=== PATIENT | female | born 1955 | race Caucasian/White ===

== ENCOUNTER 2022-01-05 17:08 | Emergency (ER) | payer BC, MEDICARE ==
[2022-01-05 17:23] VITALS: O2SAT 98
[2022-01-05] MEDS ORDERED: BACTRIM DS TABLET PO STA (18:19)
[2022-01-05] MEDS ORDERED: BACTRIM DS TABLET PO ONE (18:22)
--- NOTE | 2022-01-05 18:27 | ERPHSYRPT ---
- History of Present Illness Time Seen by Provider: 01/05/22 17:30 Source: patient Exam Limitations: no limitations Patient Subjective Stated Complaint: pt here for left hand and wrist swelling, reddness and warmth since tuesday Triage Nursing Assessment: pt walked in, resp easy, skin w/d/p. face mask in place, has swelling reddness and warmth to left wrsit . has strong radial pulse Physician History: Patient is a 66-year-old female presents with a 2-day history of swelling and redness to her left hand. Patient states that symptoms are progressive. No pain at rest. Some discomfort with palpation. Patient declined pain medication. No trauma. No fever. Patient is not diabetic. Symptoms are mild to moderate in intensity. No associated numbness tingling or weakness. Patient denies history of same. She voices no other complaints or concerns at this time. Occurred: days ago (2 days ago) Method of Injury: unknown Quality: other (Pain only with palpation.) Severity of Pain-Max: moderate Severity of Pain-Current: mild Extremities Pain Location: hand: right (Swelling and redness at dorsum of left hand.) Modifying Factors: Improves With: movement Associated Symptoms: other Allergies/Adverse Reactions: No Known Drug Allergies Allergy (Unverified 01/05/22 17:24) Hx Influenza Vaccination/Date Given: Yes Hx Pneumococcal Vaccination/Date Given: Yes Immunizations Up to Date: Yes Travel Risk - International Travel Have you traveled outside of the country in past 3 weeks: No - Coronavirus Screening Are you exhibiting any of the following symptoms?: No Close contact with a COVID-19 positive Pt in past 14-21 Days: No - Vaccine Status Have you recieved a Covid-19 vaccination: Yes Case Finisher: Moderna - Vaccination Dates Date of 2cond Vaccination (if applicable): 2020 - Review of Systems Constitutional: No Symptoms, No Fever, No Chills Eyes: No Symptoms Ears, Nose, & Throat: No Symptoms Respiratory: No Symptoms, No Cough, No Dyspnea Cardiac: No Symptoms, No Chest Pain, No Edema, No Syncope Abdominal/Gastrointestinal: No Symptoms, No Abdominal Pain, No Nausea, No Vomiting, No Diarrhea Genitourinary Symptoms: No Symptoms, No Dysuria Musculoskeletal: No Symptoms, No Back Pain, No Neck Pain Skin: No Symptoms, No Rash Neurological: No Symptoms, No Dizziness, No Focal Weakness, No Sensory Changes Psychological: No Symptoms Endocrine: No Symptoms Hematologic/Lymphatic: No Symptoms Immunological/Allergic: No Symptoms All Other Systems: Reviewed and Negative - Past Medical History Pertinent Past Medical History: No - Past Surgical History Past Surgical History: Yes Gastrointestinal: Cholecystectomy - Social History Smoking Status: Former smoker Exposure to second hand smoke: No Drug Use: none Patient Lives Alone: No - Female History Hx Last Menstrual Period: post Hx Now: No - Nursing Vital Signs Nursing Vital Signs: Initial Vital Signs Temperature 97.8 F 01/05/22 17:23 Pulse Rate 87 01/05/22 17:23 Respiratory Rate 18 01/05/22 17:23 Blood Pressure 189/77 01/05/22 17:23 O2 Sat by Pulse Oximetry 98 01/05/22 17:23 Pain Scale Pain Intensity 6 - Physical Exam General Appearance: no apparent distress, alert Eyes, Ears, Nose, Throat Exam: normal ENT inspection, TMs normal, pharynx normal, moist mucous membranes Neck Exam: normal inspection, non-tender, supple, full range of motion Cardiovascular/Respiratory Exam: chest non-tender, normal breath sounds, regular rate/rhythm, no respiratory distress Abdominal Exam: non-tender, soft, No guarding Back Exam: normal inspection, No vertebral tenderness Shoulder Exam: normal inspection, non-tender, no evidence of injury, normal ROM Elbow/Forearm Exam: normal inspection Wrist Exam: normal inspection, non-tender, no evidence of injury, normal ROM Hand Exam: no evidence of injury, normal ROM, swelling, No abrasions, No bone tenderness, No ecchymosis, No limited ROM Neuro/Tendon Exam: normal sensation, normal motor functions Mental Status Exam: alert, oriented x 3, cooperative Skin Exam: normal color, warm, dry SpO2 Interpretation: normal SpO2: 98 O2 Delivery: Room Air - Course Nursing assessment & vital signs reviewed: Yes - Radiology Exams Hand X-ray Interpretation: Teleradiologist Report (No fractures or dislocations. Mild soft tissue swelling dorsum of hand.) Ordered Tests: Active Orders 24 hr Category Date Time Status HAND (MINIMUM 3 VIEWS) Stat Exams 01/05/22 17:30 Taken Medication Summary Discontinued Medications Generic Name Dose Route Start Last Admin Trade Name Freq PRN Reason Stop Dose Admin Trimethoprim/Sulfamethoxazole 1 tab 01/05/22 18:19 01/05/22 18:24 Smz/Tmp Ds Tablet 1 Tablet PO 01/05/22 18:20 1 tab ONCE STA Administration Trimethoprim/Sulfamethoxazole Confirm 01/05/22 18:22 Smz/Tmp Ds Tablet 1 Tablet Administered 01/05/22 18:23 Dose 1 tab PO .STK-MED ONE - Progress Progress: improved Progress Note: Patient received a dose of Bactrim in our ED. X-ray negative for fracture dislocation. There is mild soft tissue swelling at dorsum of left hand. Patient declined pain medication. We demarcated the area of redness so that patient can observe progress of treatment. Patient agrees to follow-up with a primary care doctor within 48 hours for reevaluation. She voices no other complaints or concerns this time. Portions of this note were created with voice recognition technology. There may be grammatical, spelling, punctuation or sound alike errors 01/05/22 18:42 Counseled pt/family regarding: diagnosis, need for follow-up, rad results - Departure Departure Disposition: Home Clinical Impression: Cellulitis Condition: Stable Critical Care Time: No Referrals: PHANI QUINN [Primary Care Provider] - Follow up/PCP as directed Instructions: Cellulitis (Skin Infection), Adult (DC) Additional Instructions: Discharge/Care Plan CARLA MORA was seen on 01/05/22 in the Emergency Room. The patient was counseled regarding Diagnosis,Lab results, Imaging studies, need for follow up and when to return to the Emergency Room. Prescriptions given: Discharge Note I have spoken with the patient and/or caregivers. I have explained the patient's condition, diagnosis and treatment plan based on the information available to me at this time. I have answered the patient's and/or caregiver's questions and addressed any concerns. The patient and/or caregivers have as good understanding of the patient's diagnosis, condition and treatment plan as can be expected at this point. The vital signs have been stable. The patient's condition is stable and appropriate for discharge from the emergency department. The patient will pursue further outpatient evaluation with the primary care physician or other designated or consulting physician as outlined in the discharge instructions. The patient and/or caregivers are agreeable to this plan of care and follow-up instructions have been explained in detail. The patient and/or caregivers have received these instruction. The patient/and or caregivers are aware that any significant change in condition or worsening of symptoms should prompt an immediate return to this or the closest emergency department or call 911. Prescriptions: Sulfamethoxazole/Trimethoprim [Bactrim Ds Tablet] 1 each PO BID 7 Days #14 tablet
[2022-01-05 18:31] VITALS: BP 162/85; PULSE 76
--- NOTE | 2022-01-06 08:45 | XRAY ---
Indication: Pain and erythema. Comparison: None 3 view left hand demonstrates mild osteopenia. No other bony, articular, or soft tissue abnormalities.
== END 2022-01-05 18:36 | disposition home or self-care (01) ==
LOC: ED 17:08
DX: L03.114 Cellulitis of left upper limb (principal)
CPT/HCPCS: 73130; 99283; A9270-GY

== ENCOUNTER 2022-09-18 11:21 | Emergency (ER) | payer MEDICARE ==
[2022-09-18 11:41] VITALS: O2SAT 98
[2022-09-18] MEDS ORDERED: Pepcid 20 MG VIAL IV ONE ×2 (12:20→12:21)
[2022-09-18] MEDS ORDERED: solu-MEDROL 125 MG, Sterile H2O 10 ml 2 ML IV ONE ×2 (12:20)
[2022-09-18] MEDS ORDERED: BENADRYL 50 MG/ML IV ONE (12:20)
[2022-09-18] MEDS ORDERED: Sterile H2O 10 ml IJ ONE (12:21)
[2022-09-18] MEDS ORDERED: BENADRYL 50 MG/ML ONE (12:21)
[2022-09-18] MEDS ORDERED: solu-MEDROL ONE (12:22)
[2022-09-18 13:29] VITALS: BP 130/76; PULSE 58
--- NOTE | 2022-09-18 13:48 | ERPHSYRPT ---
- History of Present Illness Time Seen by Provider: 09/18/22 12:08 Source: patient Exam Limitations: no limitations Patient Subjective Stated Complaint: C/O Hives. Patient states she started a new medication for RA 9-10 days ago and she started having some itching yesterday and noted a rash to entire upper body today. Triage Nursing Assessment: Patient alert and oriented. No SOB. HAYNES WNL. A red, raised rash noted to BUE, torso, and behind ears. Throat is red. Physician History: 67 years old female with history of rheumatoid arthritis recently started on Plaquenil almost 9 days ago and this morning she woke up with generalized rash all over with itching and burning sensation. She does complain of some sore nests in the throat but no throat closing sensation or difficulty breathing. No swelling in the mouth. Patient was initially seen at urgent care and sent in here for further evaluation. Denies any chest pain palpitations. She has not taken dose of Plaquenil this morning. Timing/Duration: today, gradual onset, worse Quality: burning, itchy Severity: moderate Location: generalized Possible Causes: medications Associated Symptoms: rash, sore throat, No difficulty breathing Allergies/Adverse Reactions: No Known Drug Allergies Allergy (Verified 09/18/22 11:26) Home Medications: Hydroxychloroquine Sulfate [Plaquenil] 1 tab PO BID 09/18/22 [History] Pravastatin Sodium 1 tab PO HS 09/18/22 [History] Prednisone 5 mg [Deltasone 5 mg] 1 tab PO BID 09/18/22 [History] Hx Tetanus, Diphtheria Vaccination/Date Given: Yes Hx Influenza Vaccination/Date Given: No Hx Pneumococcal Vaccination/Date Given: Yes (2020) Immunizations Up to Date: Yes Travel Risk - International Travel Have you traveled outside of the country in past 3 weeks: No - Coronavirus Screening Are you exhibiting any of the following symptoms?: No Close contact with a COVID-19 positive Pt in past 14-21 Days: No - Vaccine Status Have you recieved a Covid-19 vaccination: Yes Sheep Killer: Moderna - Vaccination Dates Date of 2cond Vaccination (if applicable): 2020 - Review of Systems Constitutional: No Symptoms Eyes: No Symptoms Ears, Nose, & Throat: Throat Swelling Respiratory: No Symptoms Cardiac: No Symptoms Abdominal/Gastrointestinal: No Symptoms Genitourinary Symptoms: No Symptoms Musculoskeletal: Arthralgias Skin: Rash Neurological: No Symptoms Endocrine: No Symptoms Immunological/Allergic: No Symptoms - Past Medical History Pertinent Past Medical History: Yes Cardiac History: High Cholesterol Musculoskeletal History: Rheumatoid Arthritis - Past Surgical History Past Surgical History: Yes Gastrointestinal: Cholecystectomy Other Surgical History: only one tonsil removed - Social History Smoking Status: Former smoker Exposure to second hand smoke: No Drug Use: none Patient Lives Alone: No - Nursing Vital Signs Nursing Vital Signs: Initial Vital Signs Temperature 97.6 F 09/18/22 11:29 Pulse Rate 63 09/18/22 11:29 Respiratory Rate 20 09/18/22 11:29 Blood Pressure 209/107 09/18/22 11:29 O2 Sat by Pulse Oximetry 98 09/18/22 11:29 Pain Scale Pain Intensity 0 - Physical Exam General Appearance: no apparent distress, alert Eye Exam: PERRL/EOMI, eyes nml inspection Ears, Nose, Throat Exam: normal ENT inspection, TMs normal, pharynx normal Neck Exam: normal inspection, non-tender, full range of motion Respiratory Exam: normal breath sounds, lungs clear Cardiovascular Exam: regular rate/rhythm, normal heart sounds Gastrointestinal/Abdomen Exam: soft Extremity Exam: normal inspection, normal range of motion Neurologic Exam: alert, oriented x 3, cooperative, flanging roll operator II-XII nml as tested Skin Exam: normal color, rash (Generalized raised papules with erythematous base.) SpO2 Interpretation: normal SpO2: 98 O2 Delivery: Room Air - Course EKG Interpreted by Me: RATE (60), Sinus Rhythm, NORMAL AXIS, NORMAL INTERVALS, Non-specific ST Changes Ordered Tests: Medication Summary Discontinued Medications Generic Name Dose Route Start Last Admin Trade Name Juan PRN Reason Stop Dose Admin Methylprednisolone Sodium 0 mg 09/18/22 12:20 09/18/22 12:26 Succinate 125 mg/ Sterile IV 09/18/22 12:21 125 mg Water 2 ml STAT ONE Administration Diphenhydramine HCl 50 mg 09/18/22 12:20 09/18/22 12:24 Diphenhydramine Hcl 50 Mg/Ml Vial IV 09/18/22 12:21 50 mg STAT ONE Administration Diphenhydramine HCl Confirm 09/18/22 12:21 Diphenhydramine Hcl 50 Mg/Ml Vial Administered 09/18/22 12:22 Dose 50 mg .ROUTE .STK-MED ONE Famotidine 20 mg 09/18/22 12:20 09/18/22 12:30 Famotidine 20 Mg/1 Vial IV 09/18/22 12:21 Not Given STAT ONE Famotidine Confirm 09/18/22 12:21 Famotidine 20 Mg/1 Vial Administered 09/18/22 12:22 Dose 20 mg IV .STK-MED ONE Methylprednisolone Sodium Succinate Confirm 09/18/22 12:22 Methylprednis Sod Succ 125 Mg/2 Ml Vial Administered 09/18/22 12:23 Dose 125 mg .ROUTE .STK-MED ONE Sterile Water Confirm 09/18/22 12:21 Water For Injection,Sterile 10 Ml Vial Administered 09/18/22 12:22 Dose 10 ml IJ .STK-MED ONE - Progress Progress: improved Progress Note: 09/18/22 13:49 She is given Solu-Medrol/Benadryl/Pepcid, observed in the ER and it is much more improved. She is feeling much better. No difficulty breathing. Lungs bilateral clear to auscultation and oropharynx is clear. Discussed with Dr. Vidal Tesfaye patient's primary community development specialist who recommended stopping Plaquenil and follow-up outpatient early next week. Plan discussed with patient who understand and agrees with it. We will continue with steroids, Benadryl and Pepcid to go home. Discussed with .: Other Counseled pt/family regarding: diagnosis, need for follow-up - Departure Departure Disposition: Home Clinical Impression: Allergic reaction Condition: Stable Critical Care Time: No Referrals: PHANI QUINN [Primary Care Provider] - Follow Up with PCP/3 days VIDAL TESFAYE MD [NON-STAFF PHY W/O PRIVILEGES] - Follow up/PCP as directed (Call in 2 days for reevaluation) Instructions: Drug Allergy Additional Instructions: Follow-up with your primary care/community development specialist for reevaluation. Continue with steroids and take Benadryl as needed. Return to ER for worsening rash or if having difficulty breathing, throat closing sensation, chest pain palpitations etc. Prescriptions: Diphenhydramine HCl 25 mg [Benadryl 25 mg Capsule] 25 mg PO Q4H PRN PRN #20 cap PRN Reason: Allergies Prednisone 20 mg [Deltasone 20 mg] 40 mg PO DAILY 5 Days #10 tablet Famotidine 20 mg [Pepcid 20 MG] 20 mg PO BID #10 tablet
== END 2022-09-18 14:03 | disposition home or self-care (01) ==
LOC: ED 11:21
DX: L50.0 Allergic urticaria (principal); T37.8X5A Adverse effect of other specified systemic anti-infectives and antiparasitics, initial encounter; E78.5 Hyperlipidemia, unspecified; Z79.52 Long term (current) use of systemic steroids; Z79.899 Other long term (current) drug therapy
CPT/HCPCS: 36000; 96374; 96375; 99283; J1200; J2930